=== PATIENT | male | born 1960 | race Caucasian/White ===

== ENCOUNTER 2016-06-03 13:09 | Observation (INO) | payer OTHER ==
--- NOTE | ~2016-06-03 | HP ---
History And Physical [place] [id number] [facility] [place]. 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 CHIEF COMPLAINT: Chest tightness. HISTORY OF PRESENT ILLNESS: A very pleasant 55-year-old white male with no known history of CAD with status post renal and pancreatic transplant in 2003 at [place]. He states he recently had a followup there and everything looked great. He reports that over the past two weeks, he has experienced episodic chest pain, described as a tightening up in his chest, occurring with typical and atypical features. He also describes it as a drawing sensation in his chest at times when he is walking. Past 05/29/2016, he was driving to [place] and he became more short of breath than normal. He describes it as left-sided in nature. The chest pain does not radiate elsewhere. At its most intense, it is rated as 6 at the time of interview in the CPOU. In the ER, he is pain free. He reports some associated shortness of breath and dizziness. Denies nausea, diaphoresis, or belching. Most episodes last approximately 15 seconds to approximately one minute in duration. The patient denies any personal history of myocardial infarction, stroke, DVT, or pulmonary embolus. The patient denies any recent fever or chills, no palpitations, no syncopal episodes. Denies PND or orthopnea. PAST MEDICAL HISTORY: 1. Hypertension. 2. Renal disease related to long-standing diabetes, now well controlled. 3. Cholesterol reportedly "good.". PAST SURGICAL HISTORY: 1. Renal pancreatic transplant in 2003. 2. Bilateral carpal tunnel. 3. Partial thyroidectomy (benign). 4. Ganglion cyst. 5. Tonsillectomy. SOCIAL HISTORY: He is with one child. He is a maintenance employee. He does have a structured exercise routine. He used to run most of the days, but now he walks one mile every other day and lifts weights most recently, this past Tuesday without incident. Denies tobacco, alcohol, or illicits. FAMILY HISTORY: Father with a heart attack at 51, at 53. Brother with CAD and stents at 60 remains alive at 65. REVIEW OF SYSTEMS: A 14-point review of systems performed, significant for HPI. No other contributory History And Physical [address] [address] NAME: JENNIFER JEWELL : 60 STATUS : ADM Roni PAT#: [id number] AGE: 55 ADM/REG DATE : 06/03/16 MR#: [id number] REPORT SERV DATE: 06/03/16 DICTATED BY: REGGIE RUBY DATE: 06/03/16 REPORT STATUS : Draft TRANSCRIBED BY: SEB DATE: 06/03/16 diagnoses identified. ALLERGIES: PENICILLIN, NSAIDS, KIDNEY TRANSPLANT. HOME MEDICATIONS: Tylenol p.r.n., magnesium 250 mg twice daily, Prograf 3 mg twice daily, CellCept 500 mg twice daily, prednisone 7.5 mg daily, nifedipine XL 60 twice daily, metoprolol tartrate 25 mg twice daily, ramipril 10 mg nightly, multivitamin daily, vitamin B12 of 500 mcg twice daily, and aspirin 81 mg daily. PHYSICAL EXAMINATION: VITAL SIGNS: Blood pressure 138/70, pulse 50, respirations 16, and temperature 98.4. Bilateral blood pressures on arrival, right 136/75, left 147/67; pulse 49; respirations 18; temperature 97.7; O2 saturation 97% on room air. Height 6 feet 0 inches, weight 239 pounds, and BMI 32.4. GENERAL: Cooperative, in no apparent distress. HEENT: Pupils 2 mm, sclera nonicteric. Nares patent. Moist mucous membranes. No xanthelasma. NECK: Trachea midline, no thyromegaly. No JVD. No bruits. LYMPH: No cervical lymphadenopathy. No supraclavicular lymphadenopathy. RESPIRATORY: Unlabored respirations. Breath sounds clear bilaterally to posterior auscultation. No wheezes or rhonchi. CARDIOVASCULAR: Regular rate. No murmur, rub or gallop appreciated. Extremities without edema. Pulses 2+ bilaterally. ABDOMEN: Soft, nontender, nondistended, normal bowel sounds auscultated throughout. No organomegaly. SKIN: Warm, dry extremities. No pallor, or cyanosis. PSYCHIATRIC: Appropriate affect. Alert, oriented x3. LABORATORY DATA: Troponin less than 0.02, next due at 1730 hours. Potassium 4.8, BUN 25, creatinine 1.16, glucose 101. Magnesium 1.6. BNP 58.1, WBC 8.0, hemoglobin 14.1, hematocrit 41.9, and platelet count 245,000. EKG: Sinus bradycardia. ASSESSMENT AND PLAN: 1. Substernal chest pain with typical and atypical features. The patient will be observed in the CPOU overnight to rule out myocardial infarction with serial enzymes and serial EKGs. If second troponin negative, n.p.o. for exercise treadmill in the morning which may be converted to MPI if warranted. The patient will be discharged home if low risk, no ischemia. If anything suggestive of ischemia, Cardiology referral will be initiated. Otherwise, the patient will be asked to follow up with PCP in [place], [place], in one to two weeks with all studies being sent to that office. 2. Hypertension. Monitor blood pressure. Hold CCB and BB for now. Resume after MPI. Other antihypertensive medicines approved. 3. Diabetes, well controlled at this time. No monitoring required. 4. Renal pancreas transplant. Antirejection medications as prescribed. History And Physical [address] [address] NAME: JENNIFER JEWELL : 60 STATUS : ADM Roni PAT#: [id number] AGE: 55 ADM/REG DATE : 06/03/16 MR#: [id number] REPORT SERV DATE: 06/03/16 DICTATED BY: REGGIE RUBY DATE: 06/03/16 REPORT STATUS : Draft TRANSCRIBED BY: SEB DATE: 06/03/16 JAVAD/SEB JUANPABLO Rousseau, [employer] SALESPERSON-BC / [id number] CC: JUANPABLO Rousseau, [employer] SALESPERSON-BC SAVANNAH HITCHCOCK
[2016-06-03 11:45] LABS: BASOPHILS 0.1 %; BASOPHILS ABSOLUTE 0.01 10/3/uL (0.0-0.16); EOSINOPHILS 0.5 %; EOSINOPHILS ABSOLUTE 0.04 10/3/uL (0.0-0.53); HEMATOCRIT 41.9 % (40.0-51.0); HEMOGLOBIN 14.1 g/dL (13.6-17.8); IMMATURE GRANULOCYTES 0.1 %; IMMATURE GRANULOCYTES ABSOLUTE 0.01 10/3/uL (0.0-0.11); LYMPHOCYTES ABSOLUTE 1.11 10/3/uL (0.67-4.30); MEAN CORPUS HGB CONC 33.7 g/dL (32.0-36.0); MEAN CORPUSCULAR HEMOGLOB 30.7 pg (26.0-34.0); MEAN CORPUSCULAR VOLUME 91.3 fL (80-100); MEAN PLATELET VOLUME 9.1 fL (9.2-13.0); MONOCYTES 3.9 %; MONOCYTES ABSOLUTE 0.31 10/3/uL (0.21-1.20); NEUTROPHILS 81.4 %; NEUTROPHILS ABSOLUTE 6.47 10/3/uL (2.02-8.40); PLATELET COUNT 245 10/3/uL (150-400); RBC DISTRIBUTION WIDTH 13.3 % (12.0-16.0); RED CELL COUNT 4.59 10/6/uL (4.7-6.1)
[2016-06-03 11:46] LABS: MANUAL DIFF NO %
[2016-06-03 11:52] LABS: INTERNATIONAL NORMAL RATI 1.1 UNITS (-); PROTIME (NOT ORD) 13.9 SEC (12.0-14.5)
[2016-06-03 11:53] LABS: PARTIAL THROMBO TIME 29.1 SEC (22.5-37.2)
[2016-06-03 12:02] LABS: BUN (BLOOD UREA NITROGEN) 25 MG/DL (6-23); CHEST PAIN PROFILE TAT 0 Hrs 21 Mins; CHLORIDE, SERUM 106 MMOL/L (96-112); CO2 (CARBON DIOXIDE) 24 MMOL/L (24-34); CREATININE 1.16 MG/DL (0.70-1.30); GFR AFRICAN AMERICAN 82 ML/MIN (>=60); GFR NON AFRICAN AMERICAN 71 ML/MIN (>=60); GLUCOSE, SERUM 101 MG/DL (60-99); POTASSIUM, SERUM 4.8 MMOL/L (3.5-5.3); SODIUM, SERUM 139 MMOL/L (135-148); TROPONIN I <0.02 NG/ML (<0.05)
[2016-06-03] MEDS ORDERED: ACET500CAP PO (13:17)
[2016-06-03] MEDS ORDERED: MAGNESIUM 250 MG PO (13:17)
[2016-06-03] MEDS ORDERED: CELLCEPT5 PO (13:18)
[2016-06-03] MEDS ORDERED: PROGRAF1 PO (13:18)
[2016-06-03] MEDS ORDERED: NIFEDICAL XL60 MG PO (13:19)
[2016-06-03] MEDS ORDERED: LOP25 PO (13:19)
[2016-06-03] MEDS ORDERED: P5 PO (13:19)
[2016-06-03] MEDS ORDERED: ALTACE10 MG PO (13:20)
[2016-06-03] MEDS ORDERED: MULTIVIT/MIN PO (13:20)
[2016-06-03] MEDS ORDERED: B12250T PO (13:21)
[2016-06-03] MEDS ORDERED: HALF81 PO (13:22)
[2016-06-05] MEDS ORDERED: NITROQUICK0.4 MG SL (11:43)
== END 2016-06-05 15:47 | disposition home or self-care (01) ==
LOC: ER 13:09 → CDU1 13:30 → CDU2 13:34 → 6NO 06-04 15:19
PROVIDERS: Emergency Medicine
DX: R07.2 Precordial pain (principal); I10 Essential (primary) hypertension; E11.9 Type 2 diabetes mellitus without complications; Z94.0 Kidney transplant status; Z94.83 Pancreas transplant status; Z98.890 Other specified postprocedural states; Z79.82 Long term (current) use of aspirin; Z79.899 Other long term (current) drug therapy; Z88.0 Allergy status to penicillin; Z88.8 Allergy status to other drugs, medicaments and biological substances
CPT/HCPCS: 71020; 78451; 80048; 83735; 83880; 84484; 85025; 85610; 85730; 93005; 93017; 99285; A9270-GY; A9502; G0378; J7507